=== PATIENT | female | born 1975 | race Asian ===

== ENCOUNTER 2018-10-21 23:34 | Emergency (ER) | payer MEDICAID ==
[~2018-10-21] VITALS: Ht 177.8 cm; Wt 145.1 kg
[2018-10-22 00:06] VITALS: BP 155/81
--- NOTE | 2018-10-22 00:06 | NUR ---
PT TAKEN TO BED 2
--- NOTE | 2018-10-22 00:23 | NUR ---
43 y/o F presented to ED with R side mouth pain. pain radiates to R ear and head. 20/10 pain, sharp and throbbing continuous pain. per pt, "feels like my head is going explode the pain is so bad." self-mediated with tylenol at 2300, pain subsided but returned. R upper teeth sensitive to touch. no cavities present. ERMD notified. Will continue to monitor.
[2018-10-22] MEDS ORDERED: AMOXICILLIN 500 MG CAP PO ONE (00:35)
--- NOTE | 2018-10-22 01:11 | NUR ---
Patient discharged with v/s stable. Written and verbal after care instructions given and explained. Patient alert, oriented and verbalized understanding of instructions. Ambulatory with steady gait. All questions addressed prior to discharge. ID band removed. Patient advised to follow up with PMD. Rx of Amoxicillin and Motrin given. Patient educated on indication of medication including possible reaction and side effects. Opportunity to ask questions provided and answered.
== END 2018-10-22 01:11 | disposition home or self-care (01) ==
LOC: MED 23:34
DX: K04.7 Periapical abscess without sinus (principal)
CPT/HCPCS: 99283